=== PATIENT | male | born 1940 | race Native Hawaiian/Other Pacific Islander ===

== ENCOUNTER 2018-06-10 11:17 | Outpatient (CLI) | payer OTHER, MEDICARE | END 2018-06-10 11:18 | disposition home or self-care (01) | LOC: C.LAB 11:17 | DX: E78.00 Pure hypercholesterolemia, unspecified (principal); E11.65 Type 2 diabetes mellitus with hyperglycemia ==

== ENCOUNTER 2018-07-14 13:15 | Outpatient (CLI) | payer OTHER, MEDICARE | END 2018-07-14 13:16 | disposition home or self-care (01) | LOC: C.LAB 13:15 | DX: I12.9 Hypertensive chronic kidney disease with stage 1 through stage 4 chronic kidney disease, or unspecified chronic kidney disease (principal) ==

== ENCOUNTER 2018-09-28 12:32 | Outpatient (CLI) | payer OTHER, MEDICARE | END 2018-09-28 12:33 | disposition home or self-care (01) | LOC: C.LAB 12:32 | DX: E11.65 Type 2 diabetes mellitus with hyperglycemia (principal) ==